=== PATIENT | female | born 1990 | race African-American/Black ===

== ENCOUNTER 2017-03-13 20:18 | Emergency (ER) | payer OTHER ==
[~2017-03-13 20:18] MED LIST: OMEP20TA PO; ZOFR4TAB PO
[2017-03-13 20:21] VITALS: BP 117/88; PULSE 68; RESP 16; TEMP 98.7; O2SAT 99
== END 2017-03-13 22:20 | disposition left against medical advice (07) ==
LOC: NED 20:18
DX: R10.9 Unspecified abdominal pain (principal); Z53.21 Procedure and treatment not carried out due to patient leaving prior to being seen by health care provider
CPT/HCPCS: 99281